=== PATIENT | male | born 1975 | race Caucasian/White ===

== ENCOUNTER 2023-08-23 17:20 | Emergency (ER) | payer OTHER ==
[~2023-08-23] VITALS: Ht 182.9 cm; Wt 108.9 kg
[2023-08-23 17:26] VITALS: TEMP 98.2
[2023-08-23] MEDS: ASPIRIN 81 MG TAB.CHEW PO ONE (18:10)
[2023-08-23] MEDS ORDERED: ASPIRIN EC 81 MG TABLET.DR PO ONE (18:10)
[2023-08-23 18:35] LABS: BASOPHILS % (AUTO) 0.4 % (0.0-2.0); EOSINOPHILS # (AUTO) 0.1 K/uL (0.0-0.7); EOSINOPHILS % (AUTO) 1.4 % (0.0-6.0); HEMATOCRIT 41 % (39-51); HEMOGLOBIN 14.1 g/dL (13.5-17.5); LYMPHOCYTES # (AUTO) 2.2 K/uL (0.8-4.8); LYMPHOCYTES % (AUTO) 31.1 % (20.0-44.0); MEAN CORPUSCULAR HEMOGLOBIN 31 PG (26.0-33.0); MEAN CORPUSCULAR HGB CONC 34 g/dl (31.0-36.0); MEAN CORPUSCULAR VOLUME 89 fL (80-96); MONOCYTES # (AUTO) 0.5 K/uL (0.1-1.30); MONOCYTES % (AUTO) 7.4 % (2.0-12.0); NEUTROPHILS # (AUTO) 4.2 K/uL (1.8-8.9); NEUTROPHILS % (AUTO) 59.7 % (43.0-81.0); PLATELET COUNT (AUTO) 207 K/uL (150-450); RED BLOOD CELL COUNT(AUTO) 4.58 MIL/uL (4.5-6.0); RED CELL DISTRIBUTION WIDTH 13.8 % (11.5-15.0); WHITE BLOOD COUNT (AUTO) 7.1 K/uL (4.3-11.0)
[2023-08-23 18:41] LABS: CALCIUM, SERUM 8.7 mg/dL (8.5-10.1); CARBON DIOXIDE 25 mmol/L (21-32); CHLORIDE 104 mmol/L (98-107); CREATININE 1.1 mg/dL (0.6-1.3); GLUCOSE 129 mg/dL (74-106); POTASSIUM 3.6 mmol/L (3.5-5.1); SODIUM SERUM 140 mmol/L (136-145); UREA NITROGEN, BLOOD 19 mg/dL (7-18)
[2023-08-23 20:19] LABS: AMPHETAMINE, URINE NEGATIVE (NEGATIVE); BARBITURATE, URINE NEGATIVE (NEGATIVE); BENZODIAZEPINE, URINE NEGATIVE (NEGATIVE); COCCAINE, URINE NEGATIVE (NEGATIVE); OPIATE, URINE NEGATIVE (NEGATIVE); PHENCYCLIDINE SCREEN,URINE NEGATIVE (NEGATIVE)
[2023-08-23 20:34] LABS: CANNABINOID, URINE POSITIVE (NEGATIVE)
[2023-08-23 21:37] VITALS: BP 122/64; O2SAT 98
== END 2023-08-23 21:37 ==
LOC: ER 17:22
DX: R07.89 Other chest pain (principal); F12.10 Cannabis abuse, uncomplicated; Z60.2 Problems related to living alone
CPT/HCPCS: 36415; 71045-TC; 80048-TC; 84484-TC; 85025-TC; G0480

== ENCOUNTER 2024-03-30 19:06 | Emergency (ER) | payer MEDICAID, OTHER ==
[~2024-03-30] VITALS: Ht 182.9 cm; Wt 108.9 kg
[2024-03-30] MEDS ORDERED: PANTOPRAZOLE 40 MG VIAL ONE (20:15)
[2024-03-30] MEDS ORDERED: LIDOCAINE VISCOUS 2% UD 15 ML UDC ONE (20:16)
[2024-03-30] MEDS ORDERED: MAG HYDROX/AL HYDROX/SIMETH 30 ML UDC ONE (20:16)
[2024-03-30] MEDS ORDERED: FAMOTIDINE/PF INJ 20 MG/2 ML VIAL IV ONE (20:16)
[2024-03-30] MEDS ORDERED: ALPRAZOLAM 0.25 MG TABLET ONE (20:17)
[2024-03-30] MEDS: IV NS 0.9% 1,000 ML BAG IV ONE (20:25)
[2024-03-30] MEDS: ALPRAZOLAM 0.25 MG TABLET PO ONE (20:26)
[2024-03-30] MEDS: PANTOPRAZOLE 40 MG VIAL IV ONE (20:26)
[2024-03-30] MEDS: MAG HYDROX/AL HYDROX/SIMETH 30 ML UDC PO ONE (20:26)
[2024-03-30] MEDS: FAMOTIDINE/PF INJ 20 MG/2 ML VIAL IV ONE (20:26)
[2024-03-30] MEDS: LIDOCAINE VISCOUS 2% UD 15 ML UDC MM ONE (20:26)
[2024-03-30 20:36] LABS: CALCIUM, SERUM 8.6 mg/dL (8.5-10.1); CARBON DIOXIDE 30 mmol/L (21-32); CHLORIDE 105 mmol/L (98-107); CREATININE 0.9 mg/dL (0.6-1.3); GLUCOSE 123 mg/dL (74-106); POTASSIUM 4.2 mmol/L (3.5-5.1); SODIUM SERUM 138 mmol/L (136-145); UREA NITROGEN, BLOOD 17 mg/dL (7-18)
[2024-03-30 20:37] LABS: BASOPHILS % (AUTO) 0.3 % (0.0-2.0); EOSINOPHILS # (AUTO) 0.1 K/uL (0.0-0.7); HEMATOCRIT 40 % (39-51); LYMPHOCYTES # (AUTO) 1.3 K/uL (0.8-4.8); MEAN CORPUSCULAR HEMOGLOBIN 32 PG (26.0-33.0); MEAN CORPUSCULAR HGB CONC 35 g/dl (31.0-36.0); MEAN CORPUSCULAR VOLUME 91 fL (80-96); MONOCYTES # (AUTO) 0.3 K/uL (0.1-1.30); NEUTROPHILS # (AUTO) 5.2 K/uL (1.8-8.9); NEUTROPHILS % (AUTO) 74.7 % (43.0-81.0); PLATELET COUNT (AUTO) 191 K/uL (150-450); RED BLOOD CELL COUNT(AUTO) 4.41 MIL/uL (4.5-6.0); RED CELL DISTRIBUTION WIDTH 13.4 % (11.5-15.0); WHITE BLOOD COUNT (AUTO) 6.9 K/uL (4.3-11.0)
[2024-03-30 21:04] VITALS: BP 158/95; TEMP 98.5; O2SAT 99
== END 2024-03-30 21:05 | disposition left against medical advice (07) ==
LOC: ER 19:09
DX: R07.89 Other chest pain (principal); Z53.21 Procedure and treatment not carried out due to patient leaving prior to being seen by health care provider
CPT/HCPCS: 96374; 71045; 96361; 96375; 93005; 85025; 80048; 36415; 84484; J3490; J2470